=== PATIENT | male | born 1995 | race Caucasian/White ===

== ENCOUNTER 2022-03-13 08:26 | Outpatient (REF) | payer OTHER, SELFPAY ==
[2022-03-13 09:02] LABS: COVID-19 Test Negative (Negative); IDNOW Serial# 16C4AD1C
== END 2022-03-13 08:27 | disposition home or self-care (01) ==
LOC: HO.LAB 08:26
PROVIDERS: Visit Provider Internal Medicine
DX: Z20.822 Contact with and (suspected) exposure to COVID-19 (principal)
CPT/HCPCS: 87635; C9803

== ENCOUNTER 2022-03-25 23:07 | Emergency (ER) | payer OTHER, SELFPAY ==
[2022-03-25 23:12] VITALS: BP 173/109; PULSE 55; RESP 16; TEMP 36.7; O2SAT 98; BMI 21.6
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
[2022-03-26] MEDS: Ibuprofen 800 MG TABLET PO (01:09)
[2022-03-26] MEDS: Amoxicillin/Potassium Clav 875 MG TABLET PO (01:09)
== END 2022-03-26 01:15 | disposition home or self-care (01) ==
PROVIDERS: Emergency Provider Internal Medicine
DX: K08.89 Other specified disorders of teeth and supporting structures (principal)
CPT/HCPCS: 99283

== ENCOUNTER 2022-04-10 08:54 | Outpatient (REF) | payer OTHER, SELFPAY ==
[2022-04-10 09:34] LABS: COVID-19 Test Positive (Negative); IDNOW Serial# 16C4AD1C
== END 2022-04-10 08:55 | disposition home or self-care (01) ==
LOC: HO.LAB 08:54
PROVIDERS: Visit Provider Internal Medicine
DX: Z20.822 Contact with and (suspected) exposure to COVID-19 (principal)
CPT/HCPCS: 87635; C9803

== ENCOUNTER 2025-08-09 14:25 | Emergency (ER) | payer SELFPAY ==
[2025-08-09 15:05] VITALS: BMI 22.3
[2025-08-09 15:21] VITALS: BP 147/87; PULSE 70; RESP 18; O2SAT 95
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
[2025-08-09 17:26] VITALS: BP 147/87; PULSE 70; RESP 18; TEMP 36.6; O2SAT 95
== END 2025-08-09 17:26 | disposition home or self-care (01) ==
PROVIDERS: Emergency Provider Emergency Medicine
DX: S40.022A Contusion of left upper arm, initial encounter (principal); S40.021A Contusion of right upper arm, initial encounter; S00.81XA Abrasion of other part of head, initial encounter; Y00.XXXA Assault by blunt object, initial encounter; Y93.9 Activity, unspecified; Y92.9 Unspecified place or not applicable; Y99.9 Unspecified external cause status
CPT/HCPCS: 99282; 99283